=== PATIENT | male | born 1985 | race Caucasian/White ===

== ENCOUNTER 2017-08-01 07:48 | Emergency (ER) | payer MEDICAID ==
[2017-08-01 07:55] VITALS: TEMP 97.9
--- NOTE | 2017-08-01 07:55 | EDPHY ---
H & P Stated Complaint: intermittent n/v/d over last week/problems with same for years /daily thc Time Seen by Provider: 08/01/17 07:54 HPI/ROS: CHIEF COMPLAINT: Intermittent nausea vomiting HISTORY OF PRESENT ILLNESS: The patient presents to the ED with a several year history of intermittent nausea and vomiting. The patient reports these symptoms have been occurring for the past several years and increasing in frequency. The patient describes paroxysms of upper abdominal pain, cramping vomiting and loose stool. The patient denies any recent antibiotic use. He denies travel outside the [place]. He denies prior past surgical history. The patient denies any melena. He uses alcohol occasionally. REVIEW OF SYSTEMS: A comprehensive 10 point review of systems is otherwise negative aside from elements mentioned in the history of present illness. Source: Patient Exam Limitations: No limitations - Personal History Current Tetanus/Diphtheria Vaccine: No - Medical/Surgical History Hx Asthma: No Hx Chronic Respiratory Disease: No Hx Diabetes: No Hx Cardiac Disease: No Hx Renal Disease: No Hx Cirrhosis: No Hx Alcoholism: No Hx HIV/AIDS: No Hx Splenectomy or Spleen Trauma: No Other PMH: cervical fx/r leg - Social History Smoking Status: Current every day smoker - Physical Exam Exam: General Appearance: Alert, no distress Eyes: Pupils equal and round no pallor or injection ENT, Mouth: Mucous membranes moist Respiratory: There are no retractions, lungs are clear to auscultation Cardiovascular: Regular rate and rhythm Gastrointestinal: Minimal epigastric tenderness to palpation Neurological: A&O, normal motor function, normal sensory exam, normal cranial nerves Skin: Warm and dry, no rashes Musculoskeletal: Neck is supple nontender Extremities: symmetrical, full range of motion Constitutional: Initial Vital Signs Temperature (C) 36.6 C 08/01/17 07:51 Heart Rate 60 08/01/17 07:51 Respiratory Rate 18 08/01/17 07:51 Blood Pressure 140/92 H 08/01/17 07:51 O2 Sat (%) 98 08/01/17 07:51 O2 Delivery Mode Room Air Allergies/Adverse Reactions: No Known Allergies Allergy (Unverified 08/01/17 07:51) Home Medications: Medication Instructions Recorded NK [No Known Home Meds] 08/01/17 Medical Decision Making - Diagnostics Imaging Results: Imaging Impressions Abdomen Ultrasound 08/01/17 08:15 Impression: Suspect small gallbladder polyps. No stone formation or sonographic cholecystitis. If clinically indicated this patient might benefit from a HIDA scan. Message was left for Freddie Perez, at 08/01/2017 9:38 ED Course/Re-evaluation: The patient presents to the ED with acute abdominal pain vomiting in the setting of chronic daily marijuana use. The patient is presenting with likely cyclic vomiting syndrome. His workup in the emergency department demonstrates normal laboratory studies. Given the episodic nature of his epigastric pain and ultrasound was ordered which demonstrates no evidence of cholelithiasis or cholecystitis. The patient had an IV established. He was treated with IV Haldol and Zofran. The patient received a L of normal saline. I re-evaluated the patient at 10:00 a.m.: He states he feels much better and wants to be discharged home. I have informed him of the possibility of cannabis induced hyperemesis. The patient will be referred to our on-call hydraulic elevator constructor. He is advised to return to the ED for markedly worsening symptoms or other concerns. The patient has no localizing tenderness to suggest acute appendicitis is presentation today. The patient is noted to have a lipase just outside the range of normal which is felt to be clinically insignificant is the patient currently has no abdominal tenderness. Differential Diagnosis: Differential diagnosis considered includes pancreatitis, cholecystitis, dehydration, metabolic abnormality, hepatitis - Data Points Laboratory Results: Laboratory Results 08/01/17 08:20 08/01/17 08:20 08/01/17 08/01/17 08:20 08:20 WBC 11.00 10^3/uL H 10^3/uL (3.80-9.50) RBC 4.96 10^6/uL 10^6/uL (4.40-6.38) Hgb 15.4 g/dL g/dL (13.7-17.5) Hct 44.2 % % (40.0-51.0) MCV 89.1 fL fL (81.5-99.8) MCH 31.0 pg pg (27.9-34.1) MCHC 34.8 g/dL g/dL (32.4-36.7) RDW 12.9 % % (11.5-15.2) Plt Count 410 10^3/uL H 10^3/uL (150-400) MPV 8.0 fL L fL (8.7-11.7) Neut % (Auto) 64.6 % % (39.3-74.2) Lymph % (Auto) 16.5 % % (15.0-45.0) [place] % (Auto) 6.7 % % (4.5-13.0) Eos % (Auto) 11.2 % H % (0.6-7.6) Baso % (Auto) 0.6 % % (0.3-1.7) Nucleat RBC Rel Count 0.0 % % (0.0-0.2) Absolute Neuts (auto) 7.10 10^3/uL H 10^3/uL (1.70-6.50) Absolute Lymphs (auto) 1.82 10^3/uL 10^3/uL (1.00-3.00) Absolute Monos (auto) 0.74 10^3/uL 10^3/uL (0.30-0.80) Absolute Eos (auto) 1.23 10^3/uL H 10^3/uL (0.03-0.40) Absolute Basos (auto) 0.07 10^3/uL 10^3/uL (0.02-0.10) Absolute Nucleated RBC 0.00 10^3/uL 10^3/uL (0-0.01) Immature Gran % 0.4 % % (0.0-1.1) Immature Gran # 0.04 10^3/uL 10^3/uL (0.00-0.10) Sodium 142 mEq/L mEq/L (134-144) Potassium 4.0 mEq/L mEq/L (3.5-5.2) Chloride 106 mEq/L mEq/L (97-110) Carbon Dioxide 23 mEq/l mEq/l (22-31) Anion Gap 13 mEq/L mEq/L (8-16) BUN 11 mg/dL mg/dL (7-23) Creatinine 1.1 mg/dL mg/dL (0.7-1.3) Estimated GFR > 60 Glucose 97 mg/dL mg/dL (70-100) Calcium 10.0 mg/dL mg/dL (8.5-10.4) Total Bilirubin 0.3 mg/dL mg/dL (0.1-1.4) Conjugated Bilirubin 0.1 mg/dL mg/dL (0.0-0.5) Unconjugated Bilirubin 0.2 mg/dL mg/dL (0.0-1.1) AST 17 IU/L IU/L (17-59) ALT 29 IU/L IU/L (21-72) Alkaline Phosphatase 72 IU/L IU/L (38-126) Total Protein 6.9 g/dL g/dL (6.3-8.2) Albumin 4.2 g/dL g/dL (3.5-5.0) Lipase 318 IU/L H IU/L (23-300) Medications Given: Discontinued Medications Haloperidol Lactate (Haldol Injection) 2.5 mg IVP EDNOW ONE Stop: 08/01/17 08:49 Last Admin: 08/01/17 09:01 Dose: 2.5 mg Sodium Chloride (Ns) 1,000 mls @ 0 mls/hr IV ONCE ONE; Wide Open PRN Reason: Protocol Stop: 08/01/17 08:23 Last Admin: 08/01/17 08:29 Dose: 1,000 mls Ondansetron HCl (Zofran) 4 mg IVP EDNOW ONE Stop: 08/01/17 08:49 Last Admin: 08/01/17 09:02 Dose: 4 mg Departure - Departure Disposition: Home, Routine, Self-Care Clinical Impression: Cyclic vomiting syndrome Condition: Good Instructions: Acute Nausea and Vomiting (ED) Additional Instructions: 1. Zofran as needed for recurrent nausea and vomiting. 2. There is evidence the chronic daily marijuana use is associated with the development of cyclic vomiting syndrome. I do recommend considering abstaining from marijuana to see if there is improvement of your symptoms. 3. You have been given the number of our on-call hydraulic elevator constructor for any ongoing symptoms or should you desire additional workup. 4. Return to the ED for any worsening pain, fever or other concerns. Referrals: Hector Smith MD [Medical Doctor] - As per Instructions
[2017-08-01] MEDS ORDERED: NS 1,000 ML IV ONE (08:22)
[2017-08-01 08:38] LABS: % IMMATURE GRANULYOCYTES 0.4 % (0.0-1.1); ABSOLUTE IMMATURE GRANULOCYTES 0.04 10^3/uL (0.00-0.10); ADD DIFF? NO; ADD MORPH? NO; ADD SCAN? NO; ATYPICAL LYMPHOCYTE FLAG 20 (0-99); FRAGMENT RBC FLAG 0 (0-99); HEMATOCRIT 44.2 % (40.0-51.0); HEMOGLOBIN 15.4 g/dL (13.7-17.5); LEFT SHIFT FLG 0 (0-99); LIPEMIA HEMOLYSIS FLAG 90 (0-99); MEAN CELL HEMOGLOBIN CONCENTR. 34.8 g/dL (32.4-36.7); MEAN CELL VOLUME 89.1 fL (81.5-99.8); PLATELET CLUMPS FLAG 0 (0-99); PLATELET COUNT 410 10^3/uL (150-400); RED BLOOD CELL COUNT 4.96 10^6/uL (4.40-6.38); RED CELL DISTRIBUTION WIDTH 12.9 % (11.5-15.2)
[2017-08-01] MEDS ORDERED: ONDANSETRON 4 MG/2 ML VIAL IVP ONE (08:48)
[2017-08-01] MEDS ORDERED: HALOPERIDOL LACT 5 MG/ML INJ IVP ONE (08:48)
[2017-08-01 08:58] LABS: ALANINE AMINOTRANSFERASE 29 IU/L (21-72); ALBUMIN 4.2 g/dL (3.5-5.0); ALKALINE PHOSPHATASE 72 IU/L (38-126); ANION GAP 13 mEq/L (8-16); ASPARTATE AMINOTRANSFERASE 17 IU/L (17-59); BILIRUBIN,TOTAL 0.3 mg/dL (0.1-1.4); BILIRUBIN-CONJUGATED 0.1 mg/dL (0.0-0.5); BILIRUBIN-UNCONJUGATED 0.2 mg/dL (0.0-1.1); CARBON DIOXIDE 23 mEq/l (22-31); CHLORIDE 106 mEq/L (97-110); CREATININE 1.1 mg/dL (0.7-1.3); GLOMERULAR FILTRATION RATE > 60; GLUCOSE 97 mg/dL (70-100); SODIUM 142 mEq/L (134-144); TOTAL PROTEIN 6.9 g/dL (6.3-8.2)
[2017-08-01 10:06] VITALS: BP 116/67; PULSE 73; RESP 16; O2SAT 97
== END 2017-08-01 10:05 | disposition home or self-care (01) ==
DX: G43.A0 Cyclical vomiting, in migraine, not intractable (principal); F17.200 Nicotine dependence, unspecified, uncomplicated; E86.9 Volume depletion, unspecified
CPT/HCPCS: 96374; J2405